=== PATIENT | female | born 1980 | race Caucasian/White ===

== ENCOUNTER 2023-12-25 20:08 | Emergency (ER) | payer MEDICAID ==
[~2023-12-25] VITALS: Ht 154.9 cm; Wt 72.6 kg
[2023-12-25 20:20] VITALS: O2SAT 97
== END 2023-12-26 01:27 | disposition left against medical advice (07) ==
LOC: ER 20:25
DX: R10.9 Unspecified abdominal pain (principal); Z53.21 Procedure and treatment not carried out due to patient leaving prior to being seen by health care provider
CPT/HCPCS: A4606; A4663